=== PATIENT | female | born 1975 | race Two or more races ===

== ENCOUNTER 2024-03-30 06:15 | Day surgery (SDC) | payer OTHER, SELFPAY ==
[2024-03-30] VITALS (10 sets, daily range): BP systolic 108–155; BP diastolic 71–99; BMI 45.0
[2024-03-30] MEDS: NORMOSOL-R/PLASMALYTE-A 1000 IV (09:16)
--- NOTE | 2024-03-30 13:32 | OR.RPT ---
Operative Report
Operative Report
Anesthesia Type:
General With block
Operative Indications:
Massive rotator cuff tear following episode of shoulder instability
Operative Findings :
Large retracted rotator cuff tear involving the supraspinatus infraspinatus tendons, significant partial tearing of the biceps tendon
Complications:
None
Implants:
Arthrex 4.75 mm swivel lock x 5
Procedure and Technique:
Surgical arthroscopy right shoulder rotator cuff repair, extensive debridement with biceps tenotomy
INDICATIONS FOR PROCEDURE:
Patient is 48-year-old female unfortunately sustained a work-related injury where she dislocated her shoulder. She was seen locally in the [place] area for several months treated conservatively in a sling. Ultimately she was diagnosed with a
quite large supraspinatus infraspinatus rotator cuff tendon tear. She was ultimately seen in our clinic repeat imaging was obtained confirming diagnosis. We discussed treatment options at length with the patient both surgical and nonsurgical. She
was significantly symptomatic had significant weakness range of motion deficits secondary to her tear. Given this reason, she elected to proceed with operative intervention of form of surgical arthroscopy of the right shoulder rotator cuff repair.
We discussed risks benefits and alternatives. We discussed the usual expected perioperative postoperative course. After discussion informed consent was obtained. No guarantees were given. I did explain to the patient that given the chronicity of
her tear a complete repair may be difficult. We also discussed intraoperative decision making regarding biceps tenotomy versus tenodesis.
OPERATIVE PROCEDURE:
Patient was seen in the preop holding area. Operative extremities marked. All questions were addressed and answered. She was taken to the operating room after peripheral block was performed. General anesthesia was administered. She was placed
in lateral decubitus position with the aid of a foam wedge. Arm was placed in 10 pounds of balanced traction. Operative extremity was then prepped and draped in normal sterile fashion. Preoperative antibiotics were addressed. Preoperative TXA
was given. Timeout was performed again identifying the correct operative extremity. Standard posterior viewing portal was created and a diagnostic arthroscopy revealed large retracted supraspinatus and infraspinatus rotator cuff tendon tear. The
subscapularis was intact. There was high-grade partial tearing of the mid substance biceps tendon. There is noted to be some synovitis particularly posterior glenohumeral joint. Chondral surfaces were largely intact without high-grade chondral
defect. Anterior portal was made under direct visualization. Decision was made to perform biceps tenotomy. The bicipital labral complex was then debrided. The posterior labrum and synovial tissue was debrided. Chondroplasty of the superior
humeral articular surface was also performed. Attention was then turned to the subacromial space where direct lateral portal was made under direct visualization. Bursal tissue was debrided. Grasper was utilized to mobilize the rotator cuff tendon
tear and there was found to be significant retraction with limited mobility. Extensive releases were performed. The posterior superior rotator cuff was mobilized with combination of shaver and electrocautery to release bursal liters and tethers.
Anteriorly anterior interval slide and continuity was performed utilizing shaver and electrocautery down to the base of the coracoid. There is noted to be some increased mobility of the rotator cuff tendon tear. Decision was made to proceed with
marginal convergence stitches. Three #2 FiberWire sutures were passed at the apex of the tear and tied arthroscopically. This did improve the mobility and tension of the tear. The tuberosity was then prepared with a shaver. Two 4.75 mm swivel
locks were placed medially. Anterior cable was repaired utilizing knotless mechanism. Multiple fiber tapes and #2 FiberWire sutures were then passed in a mattress fashion through the rotator cuff tendon tear. Sutures were then passed through 3
lateral row 4.75 mm swivel lock anchors and a transosseous equivalent repair configuration. Unfortunately there was noted to be 1 suture tape that was inadvertently cut and this was removed. Final construct showed near complete coverage of the
greater tuberosity with good fixation of the anterior and posterior cables. Fluid was then removed from the shoulder and portal incisions were closed utilizing 3-0 nylon suture. Sterile dressings were applied consisting of Xeroform, 4 x 4 gauze,
ABD Medipore tape. She was placed in a sling with abduction pillow anesthesia was versed and she was taken to PACU in stable condition. Postoperative plans include nonweightbearing to the operative extremity. Plan to see patient back 2 weeks
postop for initiation of passive range of motion. Recommend 81 mg aspirin daily for DVT prophylaxis
Disposition:
PACU stable condition
[2024-03-30] MEDS: DILAUDID 0.5 MG IV (14:22)
[2024-03-30] MEDS: ROXICODONE 5 MG PO (15:40)
== END 2024-03-30 15:50 | disposition home or self-care (01) ==
LOC: SDS 06:15
PROVIDERS: ATTENDING PHYSICIAN Orthopaedic Surgery
PROC: 0LN14ZZ Release Right Shoulder Tendon, Percutaneous Endoscopic Approach (ICD-10-PCS; 2024-03-30)
DX: M75.101 Unspecified rotator cuff tear or rupture of right shoulder, not specified as traumatic (principal); S43.004A Unspecified dislocation of right shoulder joint, initial encounter; X58.XXXA Exposure to other specified factors, initial encounter
CPT/HCPCS: 29827; C1713